=== PATIENT | male | born 1945 | race Caucasian/White ===

== ENCOUNTER → 2016-07-04 | Outpatient (CLI) | payer MEDICARE, BC ==
[~2016-07-04] MED LIST: CIPRO 500MG TA500 MG PO; IBUPROFEN200 M1 PO
== END ==
LOC: LAB 07:33
DX: Z00.00 Encounter for general adult medical examination without abnormal findings (principal); E78.2 Mixed hyperlipidemia; Z12.5 Encounter for screening for malignant neoplasm of prostate

== ENCOUNTER → 2017-07-12 | Outpatient (CLI) | payer MEDICARE, BC ==
[2012-02-24 14:17] VITALS: BP 155/91
[2017-07-12 07:29] LABS: EOS # 0.2 (0.04-0.40); EOS % 2.4 % (0.0-4.0); HEMATOCRIT 47.4 % (42.0-52.0); HEMOGLOBIN 16.3 g/dL (13.5-18.0); LYMPH# 1.6 (1.50-4.00); MEAN CELL VOLUME 89 fl (78-100); MEAN CORPUSCULAR HEMOGLOBIN 31 pg (27-31); MEAN CORPUSCULAR HGB CONC 34 g/dL (33-37); MEAN PLATELET VOLUME 8.8 fl (7.4-10.4); MONO # 0.6 (0.20-0.80); NEU # 4.3 (1.40-6.50); PLATELET COUNT 276 K/mm3 (130-400); RED BLOOD COUNT 5.33 M/mm3 (4.20-5.60); RED CELL DISTRIBUTION WIDTH 13.7 % (11.5-14.5); WHITE BLOOD COUNT 6.7 K/mm3 (4.8-10.8)
[2017-07-12 07:41] LABS: ALBUMIN 4.2 g/dL (3.5-5.0); BUN/CREATININE RATIO 13.3 (6.0-26.0); CALCIUM 9.6 mg/dL (8.4-10.2); POTASSIUM 4.2 mmol/L (3.6-5.0); TOTAL BILIRUBIN 0.7 mg/dL (0.2-1.3); TOTAL PROTEIN 7.8 g/dL (6.3-8.2)
== END ==
LOC: LAB 07:05
PROVIDERS: Nurse Practitioner Family
DX: Z00.00 Encounter for general adult medical examination without abnormal findings (principal); Z12.5 Encounter for screening for malignant neoplasm of prostate; E78.2 Mixed hyperlipidemia; R40.0 Somnolence; I10 Essential (primary) hypertension; Z87.898 Personal history of other specified conditions

== ENCOUNTER → 2019-04-01 | Day surgery (SDC) | payer MEDICARE, BC ==
[2012-02-24 14:17] VITALS: BP 155/91
== END ==
LOC: MSO 07:26
DX: Z12.11 Encounter for screening for malignant neoplasm of colon (principal); Z86.010 Personal history of colon polyps; Z83.71 Family history of colonic polyps; K57.90 Diverticulosis of intestine, part unspecified, without perforation or abscess without bleeding; I10 Essential (primary) hypertension; E78.5 Hyperlipidemia, unspecified; Z79.899 Other long term (current) drug therapy; Z79.82 Long term (current) use of aspirin
CPT/HCPCS: 00812; J2704; J7120

== ENCOUNTER 2019-06-21 08:05 | Emergency (ER) | payer MEDICARE, BC ==
[~2019-06-21] VITALS: Ht 175.3 cm; Wt 81.8 kg
[2019-06-21] MEDS ORDERED: HYDROCHLOROTHIA1 T14 PO (08:13)
[2019-06-21] MEDS ORDERED: SIMVASTATIN20 M1 PO (08:13)
[2019-06-21] MEDS ORDERED: ASPIR LOW81 MG PO (08:14)
[2019-06-21] MEDS ORDERED: METHYLPHENIDATE 10MG PO (08:15)
[2019-06-21 08:53] LABS: EOS # 0.1 (0.04-0.40); EOS % 1.7 % (0.0-4.0); HEMATOCRIT 43.6 % (42.0-52.0); HEMOGLOBIN 14.4 g/dL (13.5-18.0); LYMPH# 1.4 (1.50-4.00); MEAN CELL VOLUME 89 fl (78-100); MEAN CORPUSCULAR HEMOGLOBIN 30 pg (27-31); MEAN CORPUSCULAR HGB CONC 33 g/dL (33-37); MEAN PLATELET VOLUME 8.7 fl (7.4-10.4); MONO # 0.5 (0.20-0.80); NEU # 3.7 (1.40-6.50); PLATELET COUNT 275 K/mm3 (130-400); RED BLOOD COUNT 4.88 M/mm3 (4.20-5.60); RED CELL DISTRIBUTION WIDTH 13.3 % (11.5-14.5); WHITE BLOOD COUNT 5.7 K/mm3 (4.8-10.8)
[2019-06-21 09:09] LABS: POTASSIUM 4.3 mmol/L (3.5-5.1)
[2019-06-21 09:10] LABS: CALCIUM 9.4 mg/dL (8.3-10.5)
[2019-06-21 09:11] LABS: TOTAL PROTEIN 6.9 g/dL (6.2-8.1)
[2019-06-21 09:13] LABS: TOTAL BILIRUBIN 0.4 mg/dL (0.2-1.2)
[2019-06-21 10:57] VITALS: BP 132/88
== END 2019-06-21 10:58 | disposition home or self-care (01) ==
LOC: ED 08:05
PROVIDERS: Nurse Practitioner
DX: K92.2 Gastrointestinal hemorrhage, unspecified (principal); I10 Essential (primary) hypertension; E78.00 Pure hypercholesterolemia, unspecified; Z79.82 Long term (current) use of aspirin

== ENCOUNTER → 2020-02-25 | Outpatient (CLI) | payer MEDICARE, BC ==
[~2020-02-25] MED LIST changes: +ASPIR LOW81 MG PO; +HYDROCHLOROTHIA1 T14 PO; +METHYLPHENIDATE 10MG PO; +SIMVASTATIN20 M1 PO
[2020-02-25 09:13] LABS: EOS # 0.1 (0.04-0.40); EOS % 1.2 % (0.0-4.0); HEMOGLOBIN 15.6 g/dL (13.5-18.0); LYMPH# 1.1 (1.50-4.00); MEAN CELL VOLUME 88 fl (78-100); MEAN CORPUSCULAR HEMOGLOBIN 29 pg (27-31); MEAN CORPUSCULAR HGB CONC 33 g/dL (33-37); MEAN PLATELET VOLUME 8.6 fl (7.4-10.4); MONO # 0.6 (0.20-0.80); NEU # 4.9 (1.40-6.50); PLATELET COUNT 256 K/mm3 (130-400); RED BLOOD COUNT 5.33 M/mm3 (4.20-5.60); RED CELL DISTRIBUTION WIDTH 13.7 % (11.5-14.5); WHITE BLOOD COUNT 6.7 K/mm3 (4.8-10.8)
[2020-02-25 09:37] LABS: POTASSIUM 4.4 mmol/L (3.5-5.1)
[2020-02-25 09:38] LABS: ALBUMIN 4.2 g/dL (3.4-4.8)
[2020-02-25 09:39] LABS: CALCIUM 9.3 mg/dL (8.3-10.5)
[2020-02-25 09:40] LABS: TOTAL PROTEIN 7.8 g/dL (6.2-8.1)
[2020-02-25 09:42] LABS: TOTAL BILIRUBIN 0.3 mg/dL (0.2-1.2)
== END ==
LOC: LAB 08:59
PROVIDERS: Physician Assistant
DX: Z00.00 Encounter for general adult medical examination without abnormal findings (principal); Z12.5 Encounter for screening for malignant neoplasm of prostate; I10 Essential (primary) hypertension; E78.2 Mixed hyperlipidemia; N52.9 Male erectile dysfunction, unspecified; H61.23 Impacted cerumen, bilateral

== ENCOUNTER → 2021-01-29 | Outpatient (CLI) | payer MEDICARE, BC | LOC: LAB 16:01 | DX: U07.1 COVID-19 (principal) ==

== ENCOUNTER → 2021-10-06 | Outpatient (CLI) | payer MEDICARE, BC ==
[2021-10-06 08:39] LABS: BASO # 0.04 K/mm3 (0.02-0.10); EOS # 0.16 K/mm3 (0.04-0.40); EOS % 2.6 % (0.0-4.0); HEMATOCRIT 48.4 % (42.0-52.0); HEMOGLOBIN 16.4 g/dL (13.5-18.0); LYMPH# 1.31 K/mm3 (1.50-4.00); MEAN CELL VOLUME 90 fl (78-100); MEAN CORPUSCULAR HEMOGLOBIN 30 pg (27-31); MEAN CORPUSCULAR HGB CONC 34 g/dL (33-37); MEAN PLATELET VOLUME 8.4 fl (7.4-10.4); MONO # 0.58 K/mm3 (0.20-0.80); NEU # 4.15 K/mm3 (1.40-6.50); PLATELET COUNT 239 K/mm3 (130-400); WHITE BLOOD COUNT 6.3 K/mm3 (4.8-10.8)
[2021-10-06 08:53] LABS: ALBUMIN 4.3 g/dL (3.4-4.8); POTASSIUM 4.2 mmol/L (3.5-5.1)
[2021-10-06 08:54] LABS: CALCIUM 9.5 mg/dL (8.3-10.5)
[2021-10-06 08:56] LABS: TOTAL PROTEIN 7.5 g/dL (6.2-8.1)
[2021-10-06 08:57] LABS: TOTAL BILIRUBIN 0.6 mg/dL (0.2-1.2)
== END ==
LOC: LAB 08:16
PROVIDERS: Physician Assistant
DX: Z00.00 Encounter for general adult medical examination without abnormal findings (principal); Z13.29 Encounter for screening for other suspected endocrine disorder; K90.9 Intestinal malabsorption, unspecified; E78.2 Mixed hyperlipidemia; R97.20 Elevated prostate specific antigen [PSA]; R94.6 Abnormal results of thyroid function studies; I10 Essential (primary) hypertension; R41.840 Attention and concentration deficit